=== PATIENT | female | born 1955 | race Hispanic/Latino ===

== ENCOUNTER 2017-09-13 16:04 | Emergency (ER) | payer MEDICARE ==
[~2017-09-13] VITALS: Ht 149.9 cm; Wt 56.7 kg
[2017-09-13 16:45] LABS: BILIRUBIN,URINE NEGATIVE (NEGATIVE); CLARITY,URINE CLEAR (CLEAR); COLOR,URINE YELLOW (YELLOW); KETONES,URINE 1+ (NEGATIVE); LEUKOCYTE ESTERASE ,URINE 2+ (NEGATIVE); NITRITE,URINE NEGATIVE (NEGATIVE); PROTEIN,URINE DIPSTICK NEGATIVE (NEGATIVE); URINE UROBILINOGEN 0.2 mg/dL (0.2 - 1)
[2017-09-13 16:54] LABS: BACTERIA,URINE RARE /HPF; EPITHELIAL CELLS,URINE RARE /LPF; RBC,URINE 0-5 /HPF (0-5)
[2017-09-13 16:55] LABS: MUCUS,URINE FEW (RARE); TRANSITIONAL EPI CELLS,URINE FEW
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
[2017-09-13] MEDS ORDERED: ORPHENADRINE CITRATE 30 MG/ML VIAL IM ONE (21:45)
[2017-09-13] MEDS ORDERED: HYDROCODONE/APAP 10MG-325MG TAB PO ONE (21:45)
[2017-09-13] MEDS ORDERED: KETOROLAC TROMETHAMINE 60 MG/2 ML VIAL IM ONE (21:45)
--- NOTE | 2017-09-13 23:17 | Diagnostic Imaging Report ---
Exam: CT of the pelvis without IV contrast Indication: Left hip pain Comparison: None Findings: Axial CT images of the pelvis were obtained without the administration of IV contrast using routine protocol. Sagittal and coronal reformations were made available for review. No evidence of a pelvic fracture. The bladder is distended. The uterus is unremarkable. No adnexal masses. The partially visualized bowel is unremarkable. Normal soft tissues. No abnormal joint effusions. Degenerative disc L5/S1. Impression: No evidence of a pelvic fracture. The bladder is very distended. Signed by: Dr. Trixie King M.D. on 09/13/2017 11:13 PM
[2017-09-14 00:01] VITALS: BP 127/61
== END 2017-09-14 00:16 | disposition home or self-care (01) ==
LOC: ER 16:04
DX: M25.552 Pain in left hip (principal); S70.02XA Contusion of left hip, initial encounter; Y04.8XXA Assault by other bodily force, initial encounter; Y92.488 Other paved roadways as the place of occurrence of the external cause
CPT/HCPCS: 70450; 72125; 72192; 73502; 81001; 99284; J1885; J2360